=== PATIENT | female | born 1995 | race Caucasian/White ===

== ENCOUNTER 2018-03-15 10:00 | Emergency (ER) | payer OTHER ==
[~2018-03-15] VITALS: Ht 167.6 cm; Wt 63.5 kg
[2018-03-15 10:04] VITALS: BP_SYST 113
--- NOTE | 2018-03-15 10:04 | NUR ---
Patient to ER bed 2 to gown for evaluation. Side rails up. Report given to Aquilino SANCHEZ.
--- NOTE | 2018-03-15 10:05 | NUR ---
Pt states that while going to the restroom this AM she felt as though she needed to vomit. Then she was unable to see. Pt states that she went outside and sat on ground, then passed out. Pt states that she told her fiance what happened and brought to ER. Pt denies hitting head. Pt arrives AAOx4, mild weakness.
--- NOTE | 2018-03-15 10:10 | NUR ---
Dr. Calloway at bedside.
--- NOTE | 2018-03-15 10:20 | NUR ---
X-ray at bedside.
[2018-03-15] MEDS ORDERED: NACL 0.9% 1,000 ML IV ONE (10:30)
[2018-03-15 10:43] LABS: EOSINOPHILS # (AUTO) 0.5 K/uL (0.0-0.4)
[2018-03-15 10:44] LABS: CALCIUM 8.7 mg/dL (8.4-11.0); CREATININE 0.7 mg/dL (0.55-1.30); POTASSIUM 3.6 mmol/L (3.5-5.1)
[2018-03-15 10:46] LABS: HEMOGLOBIN 12.6 g/dL (12.0-16.0); LYMPHOCYTES # (AUTO) 1.6 K/uL (1.0-5.5); MONOCYTES # (AUTO) 0.5 K/uL (0.0-1.0); MONOCYTES % (AUTO) 6.5 % (1.7-9.3); NEUTROPHILS # (AUTO) 4.6 K/uL (1.8-7.7)
[2018-03-15 10:48] LABS: BASOPHILS # (AUTO) 0.1 K/uL (0.0-0.2); BASOPHILS % (AUTO) 0.8 % (0.0-2.0); EOSINOPHILS % (AUTO) 7.3 % (0.0-4.0); HEMATOCRIT 36.1 % (36-48); LYMPHOCYTES % (AUTO) 21.8 % (20.5-51.5); MEAN CORPUSCULAR HEMOGLOBIN 31 pg (27-31); MEAN CORPUSCULAR HGB CONC 35 % (32-36); MEAN CORPUSCULAR VOLUME 90 fL (79.0-98.0); NEUTROPHILS % (AUTO) 63.6 % (40.0-70.0); PLATELET COUNT (AUTO) 106 K/uL (130-430); RED BLOOD CELL COUNT(AUTO) 4.03 MIL/uL (4.2-6.2); RED CELL DISTRIBUTION WIDTH 11.7 % (9.0-15.0); WHITE BLOOD COUNT (AUTO) 7.3 K/uL (4.8-10.8)
[2018-03-15 10:49] LABS: ALBUMIN 3.9 g/dL (3.4-4.8); TOTAL BILIRUBIN 0.4 mg/dL (0.0-1.0)
--- NOTE | 2018-03-15 11:00 | NUR ---
AAOx4, talking with fiance at bedside. No needs verbalized at this time.
[2018-03-15 11:46] VITALS: BP_SYST 103
== END 2018-03-15 11:48 | disposition home or self-care (01) ==
LOC: SED 10:00
DX: R55 Syncope and collapse (principal); F41.9 Anxiety disorder, unspecified; F32.9 Major depressive disorder, single episode, unspecified
CPT/HCPCS: 36415; 71045; 80053; 81025; 82550; 84484; 85025; 93005; 96360; 99285; J7030